=== PATIENT | male | born 1975 | race Caucasian/White ===

== ENCOUNTER 2017-01-06 19:36 | Inpatient (IN) | payer MEDICARE, MEDICAID ==
[2017-01-06] MEDS ORDERED: Sodium Chloride 0.9% 1,000 ML IV STA ×2 (21:02→23:58)
--- NOTE | 2017-01-06 21:11 | ED PDOC ---
HPI: Psych/Substance Abuse Time Seen by Provider: 01/06/17 20:26 Chief Complaint (Nursing): Psychiatric Evaluation Chief Complaint (Provider): crisis eval History Per: Patient History/Exam Limitations: no limitations Onset/Duration Of Symptoms: Days Current Symptoms Are (Timing): Still Present Additional History Per: Patient Additional Complaint(s): 41 y/o male history of diabetes, bipolar presents for crisis eval. Patient states he had a "bad day" and had thoughts of hurting himself by injecting himself with a bottle of insulin. Patient notes he has been out of his bipolar meds x a few days, and is noncompliant with his insulin. Denies homicidal ideations,hallucinations, drug/alcohol use, acute medical complaints. Past Medical History Reviewed: Historical Data, Nursing Documentation, Vital Signs Vital Signs: Last Vital Signs Temp 98.2 F 01/06/17 20:00 Pulse 94 H 01/06/17 20:00 Resp 16 01/06/17 20:00 BP 135/69 01/06/17 20:00 Pulse Ox 100 01/06/17 20:00 - Medical History PMH: Bipolar Disorder, Diabetes, Schizophrenia Denies: Chronic Kidney Disease - Surgical History Surgical History: No Surg Hx - Family History Family History: States: Unknown Family Hx - Living Arrangements Living Arrangements: Alone - Social History Current smoker - smoking cessation education provided: Yes Alcohol: None Drugs: Denies - Home Medications Home Medications: Ambulatory Orders Medication Instructions Recorded Gabapentin [Neurontin] 300 mg PO DAILY 01/07/17 QUEtiapine [Seroquel] 100 mg PO Q12 01/07/17 - Allergies Allergies/Adverse Reactions: Allergies Allergy/AdvReac Type Severity Reaction Status Date / Time No Known Allergies Allergy Verified 01/06/17 20:00 Review of Systems ROS Statement: Except As Marked, All Systems Reviewed And Found Negative Psych: Positive for: Depression, Suicidal ideation Physical Exam - Reviewed Nursing Documentation Reviewed: Yes Vital Signs Reviewed: Yes - Physical Exam Appears: Positive for: Well, Non-toxic, No Acute Distress Head Exam: Positive for: ATRAUMATIC, NORMAL INSPECTION, NORMOCEPHALIC Skin: Positive for: Normal Color Eye Exam: Positive for: Normal appearance ENT: Positive for: Normal ENT Inspection Cardiovascular/Chest: Positive for: Regular Rate, Rhythm Respiratory: Positive for: Normal Breath Sounds Gastrointestinal/Abdominal: Positive for: Normal Exam Back: Positive for: Normal Inspection Extremity: Positive for: Normal ROM Neurologic/Psych: Positive for: Alert, Oriented - Laboratory Results Result Diagrams: 01/06/17 21:15 01/06/17 21:15 - ECG ECG: Positive for: Viewed By Me (reviewed by ED attending) ECG Rhythm: Positive for: Sinus Rhythm O2 Sat by Pulse Oximetry: 100 Pulse Ox Interpretation: Normal - Radiology X-Ray: Viewed By Me X-Ray Interpretation: No Acute Disease - Progress ED Course And Treament: accucheck, labs, urine, crisis eval Patient evaluated by workers' compensation claims supervisor; to be admitted pending clearance. EKG, chest xray ordered Patient given IV fluids, insulin in ED for elevated BS; repeated accu improved ( 262) Medical Decision Making Medical Decision Making: Patient medically stable for psych admission. Disposition - Clinical Impression Clinical Impression: Schizoaffective disorder, Bipolar 1 disorder - Patient ED Disposition Is Patient to be Admitted: Yes - Disposition Disposition Time: 01:58 Condition: STABLE
[2017-01-06 21:31] LABS: BASO # 0.1 K/uL (0.0-0.2); BASO % 1.1 % (0.0-2.0); EOS # 0.1 K/uL (0.0-0.7); EOS % 2.5 % (0.0-4.0); HEMATOCRIT 42.4 % (35.0-51.0); LYMPH # 2.1 K/uL (1.0-4.3); LYMPH % 39.6 % (20.0-40.0); MEAN CELL VOLUME 80.6 fl (80.0-94.0); MEAN CORPUSCULAR HEMOGLOBIN 26.5 pg (27.0-31.0); MEAN CORPUSCULAR HGB CONC 32.9 g/dL (33.0-37.0); MONO # 0.4 K/uL (0.0-0.8); MONO % 7.6 % (0.0-10.0); NEUT # 2.6 K/uL (1.8-7.0); NEUT % 49.2 % (50.0-75.0); RED CELL DISTRIBUTION WIDTH 14.5 % (11.5-14.5); WHITE BLOOD COUNT 5.3 K/uL (4.8-10.8)
[2017-01-06 21:34] LABS: RBC URINE < 1 /hpf (0-3); URINE BILIRUBIN NEGATIVE (NEGATIVE); URINE BLOOD NEGATIVE (NEGATIVE); URINE COLOR YELLOW (YELLOW); URINE GLUCOSE (UA) >=500 mg/dL (Normal); URINE KETONE TRACE mg/dL (NEGATIVE); URINE LEUKOCYTE ESTERASE NEG Leu/uL (Negative); URINE PROTEIN NEGATIVE (NEGATIVE); URINE UROBILINOGEN 0.2-1.0 mg/dL (0.2-1.0)
[2017-01-06 21:51] LABS: ALB/GLOB RATIO 1.2 (1.0-2.1); ALCOHOL SERUM < 10 mg/dl (0-10); ALKALINE PHOSPHATASE 87 U/L (38-126); ALT/SGPT 19 U/L (21-72); AST/SGOT 29 U/L (17-59); BILIRUBIN,TOTAL 0.7 mg/dl (0.2-1.3); BLOOD UREA NITROGEN 18 mg/dl (9-20); CALCIUM 9.2 mg/dL (8.4-10.2); CARBON DIOXIDE 27 mmol/L (22-30); CHLORIDE 97 mmol/L (98-107); GFR AFRICAN-AMERICAN > 60; POTASSIUM 4.8 MMOL/L (3.6-5.0); SODIUM 138 mmol/l (132-148); TOTAL PROTEIN 7.2 G/DL (6.3-8.2)
[2017-01-06 21:58] LABS: GLUCOSE,RANDOM 432 mg/dL (75-110)
[2017-01-06] MEDS ORDERED: Insulin Regular 100 units/ml IV STA ×3 (22:01→23:57)
[2017-01-06 22:12] LABS: ABG ALLEN TEST YES; ARTERIAL BLOOD GAS HCO3 27.4 mmol/L (21-28); ARTERIAL BLOOD GAS O2 CAPACITY 18.1 mL/dL (16-24); ARTERIAL BLOOD GAS O2 CONTENT 17.8 ML/dL (15-23); ARTERIAL BLOOD GAS PH 7.42 (7.35-7.45); ARTERIAL BLOOD GAS PO2 72 mm/Hg (80-100); ARTERIAL BLOOD HGB O2 SAT 90.9 % (95.0-98.0); CARBOXYHEMOGLOBIN 5.4 % (0.5-1.5); HHB 1.6 % (0.0-5.0); METHEMOGLOBIN 2.1 % (0.0-3.0)
[2017-01-06] MEDS ORDERED: Insulin Regular 100 units/ml ONE ×2 (22:27→23:54)
[2017-01-07 02:15] VITALS: O2SAT 100
[2017-01-07] MEDS ORDERED: Alum-Mag Hydrox-Simethicone Susp (30 mL) PO PRN (03:09)
[2017-01-07] MEDS ORDERED: Magnesium Hydroxide Susp 30 ml UD PO PRN (03:09)
[2017-01-07] MEDS ORDERED: Bismuth Subsalicylate 262 mg/15 ml Sus (240 ml) PO PRN (03:09)
[2017-01-07] MEDS ORDERED: DiphenhydrAMINE 50 mg/ml Inj IM PRN (03:14)
[2017-01-07 07:35] LABS: IRON 66 ug/dL (49-181)
[2017-01-07 07:47] LABS: T4 6.8 ug/dl (5.5-11.0)
[2017-01-07 08:00] LABS: THYROID STIMULATING HORMONE 2.77 mIU/ML (0.46-4.68)
[2017-01-07] MEDS: Insulin Lispro (humaLOG) 100 Units/ml Inj SC SCH ×4 (08:54→21:13)
--- NOTE | 2017-01-07 10:29 | RAD ---
HISTORY: clearance COMPARISON: None available. TECHNIQUE: Chest, one view. FINDINGS: Examination limited by habitus. LUNGS: Mild right basilar atelectasis. Please note that chest x-ray has limited sensitivity for the detection of pulmonary masses. PLEURA: No significant pleural effusion identified. No definite pneumothorax . CARDIOVASCULAR: Borderline cardiomegaly. OSSEOUS STRUCTURES: No acute osseous abnormality identified. VISUALIZED UPPER ABDOMEN: Unremarkable. OTHER FINDINGS: None. IMPRESSION: Borderline cardiomegaly. Mild right basilar atelectasis.
--- NOTE | 2017-01-07 11:29 | CARD ---
APPROVED REPORT EKG Measurement Heart [id number] <Conclusion> Normal sinus rhythm Inferior infarct, age undetermined Abnormal ECG
[2017-01-07] MEDS: Insulin Lispro Mix 75/25 100 units/ml (HumaLog) 10ml SC SCH ×2 (12:12→18:06)
--- NOTE | 2017-01-07 12:30 | PCM.PSYCH ---
Initial Psychiatric Evaluation - Initial Psychiatric Evaluation Type of Admission: Voluntary Legal Status: Capacity Chief Complaint (in patient's own words): "I would rather kill myself than start using drugs again." Patient's Reaction to Hospitalization: 41 y/o male w/ self reported h/o bipolar vs schizoaffective disorder, that comes to [facility] for suicidal ideations with a plan to overdose on his insulin medications. Pt reports to being depressed because he came to [place] for employment opportunities and have not been able to find a job. Pt also reports that the woman and friends that were going to be his support system left him without help or [facility]. Pt reports being originally from [place] and came to [place] 6 months ago. Pt reports that he is diagnosed with Bipolar vs. Schizoaffective Disorder and is being prescribed Remeron and Seroquel 150mg. Pt reports no current substance abuse but admitted to having a history of alcohol, cocaine and marijuana abuse. Pt reports to his last alcohol use being one month ago. Pt denies delusions and hallucinations of any kind and was not observed responding to internal stimuli. PPHx: Diagnosed with Bipolar and Schizoaffective Disorder (although unlikely, given that psychotic symptoms were in the context of cocaine abuse). Pt reports to history of inpatient treatment. Pt states being hospitalized at [facility] 2 months ago for suicidal and homicidal ideations. Pt denies current homicidal ideations. SHx: H/o alcohol/cocaine/marijuana abuse, denies current usage. Moved from [place]. Homeless. Unemployed, used to work in a warehouse. Pt states that two of his previous fianc were murdered (2004- one during a robbery and 2010- other involved in selling drugs). FHx: Father w/ h/o bipolar disorder, he of an accidental overdose of prescription opioids. Brother w/ h/o suicide attempts. MHx: Diabetes (not well controlled) ALL: NKDA Current Medications: Active Medications Generic Name Dose Route Start Last Admin Trade Name Freq PRN Reason Stop Dose Admin Acetaminophen 650 mg 01/07/17 03:09 Tylenol 325mg Tab PO Q4 PRN Pain, moderate (4-7) Al Hydrox/Mg Hydrox/Simethicone 30 ml 01/07/17 03:09 Maalox Plus 30 Ml PO Q4 PRN Dyspepsia Bismuth Subsalicylate 524 mg 04/19/17 03:09 Pepto-Bismol PO Q4 PRN Diarrhea Diphenhydramine HCl 50 mg 01/07/17 03:14 Benadryl PO Q6 PRN Extrapyramidal Symptoms Diphenhydramine HCl 50 mg 01/07/17 03:14 Benadryl IM Q6 PRN Extrapyramidal S/S Unable PO Diphenhydramine HCl 50 mg 01/07/17 03:52 Benadryl PO HS PRN Sleep Gabapentin 300 mg 01/07/17 09:00 01/07/17 12:09 Neurontin PO 300 mg TID DWIGHT Administration Haloperidol 5 mg 01/07/17 03:14 Haldol PO Q4 PRN Agitation Haloperidol Lactate 5 mg 01/07/17 03:14 Haldol IM Q4 PRN Agitation, Unable to Take PO Insulin Human Lispro 0 units 01/07/17 07:30 01/07/17 12:11 Humalog SC 4 u ACHS [facility] Administration Protocol Insulin Lispro Protam/Lispro Human 50 units 01/07/17 09:00 01/07/17 12:12 Humalog Mix 75/25 SC 50 units BID [facility] Administration Lorazepam 2 mg 01/07/17 03:14 Ativan PO Q4 PRN Anxiety/Agitation Lorazepam 2 mg 01/07/17 03:14 Ativan IM Q4 PRN Anxiety/Agitation,Unable PO Magnesium Hydroxide 30 ml 01/07/17 03:09 Milk Of Magnesia PO HS PRN Constipation Mirtazapine 15 mg 01/07/17 22:00 Remeron PO HS [facility] Quetiapine Fumarate 100 mg 01/07/17 22:00 Seroquel PO HS [facility] Past Psychiatric History - Past Psychiatric History Previous Treatment History: Inpatient Pertinent Medical Hx (Current Medical&Sleep Prob, Allergies): Allergies Allergy/AdvReac Type Severity Reaction Status Date / Time No Known Allergies Allergy Verified 01/06/17 20:00 Gabapentin [Neurontin] 300 mg PO TID 01/07/17 Insulin Human (NPH)/Regular [Novolin 70/30 (70/30 units/ml) 10 ml] 50 units SC BID 01/07/17 Mirtazapine [Remeron] 15 mg PO HS 01/07/17 QUEtiapine [Seroquel] 100 mg PO HS 01/07/17 Review of Systems - Review of Systems All systems: reviewed and no additional remarkable complaints except - Psychiatric Psychiatric: Abnormal Sleep Pattern, Depression, Irritability, Suicidal Ideation Mental Status Examination - Personal Presentation Personal Presentation: Looks stated age - Affect Affect: Constricted - Motor Activity Motor Activity: Calm - Reliability in Providing Information Reliability in Providing Information: Good - Speech Speech: Organized - Mood Mood: Depressed - Formal Thought Process Formal Thought Process: No Impairment - Obsessions/Compulsions Obsessions: No Compulsions: No - Cognitive Functions Orientation: Person, Place, Situation, Time Sensorium: Alert Attention/Concentration: Attentive Estimate of Intelligence: Average Judgement: Intact, as evidence by: Good judgement, Intact, as evidence by: Insight regarding need for hospitalization Memory: Recent intact, as evidence by: Ability to recall events of the day, Remote intact, as evidenced by: Abilit to recall sig. life events, Remote intact , as evidenced by: Ability to recall historical events - Risk Risk: Suicidal - Strength & Assets Inventory Strength & Assets Inventory: Cooperative - Limitations Limitations: Other (Homeless, poverty) DSM 5 DX - DSM 5 DSM 5 Diagnosis: Bipolar Disorder, History of Cocaine/Alcohol/Marijuana Abuse - Recommended/Plan of Treatment Treatment Recommendations and Plan of Treatment: 41 yo homeless male p/w suicidal ideation to harm himself, patient likely has Bipolar Disorder vs major depressive disorder, given that his reported symptoms of thelma are vague and may be related to his h/o cocaine abuse. -Admit to psychiatry -Stop Seroquel and Remeron as the patient has not been taking these medications -Start Depakote 500 mg PO BID -Start Trazodone 50 mg PO HS -No 1:1 needed as patient is able to contract for safety -Individual, group and milieu tx -Hospitalist consult for management of Diabetes Projected ELOS: 3-5 days Discharge Plan and Discharge Criteria: Discharge when psychiatrically stable - Smoking Cessation Smoking Cessation Initiated: No Reason for not providing: Not indicated
[2017-01-07] MEDS: Divalproex 500 mg DR(BID formulation) PO SCH ×2 (13:10→18:07)
[2017-01-07 14:12] LABS: FOLATE 16.9 ng/mL
--- NOTE | 2017-01-07 20:06 | CP.PCM.CON ---
History of Present Illness - History of Present Illness History of Present Illness: Attending: Dr Bello Reason for Consult: Management of Diabetes Mellitus Chief Complaint: Suicide Ideation HPI: 41 years old male with hx of HTN , Bipolar and Schizophrenia with multiple Inpatient Psychiatric treatment for Depression and suicidal ideations. He comes to the ED with suicidal and homicidal ideation, after running out of his medications and not able to find a job. PMH: DM II; Bipolar disorder; Schizophrenia PSH: No Surgical Hx SH: Hx of Substance abuse with Cocaine, Marijuana; Alcohol abuse; heavy smoker; Unemployed' Live alone FH: Unknown family hx Allergies: NKDA Review of Systems - Constitutional Constitutional: absent: Anorexia, Fever, Headache - EENT Eyes: Requires Corrective Lenses. absent: Diplopia, Floaters, Photophobia, Sees Flashes Ears: absent: Decreased Hearing, Ear Discharge, Ear Pain, Tinnitus Nose/Mouth/Throat: absent: Epistaxis, Nasal Discharge, Sinus Pain, Sinus Pressure, Sore Throat - Cardiovascular Cardiovascular: absent: Chest Pain, Dyspnea, Edema - Respiratory Respiratory: absent: Cough, Dyspnea, Wheezing - Gastrointestinal Gastrointestinal: absent: Abdominal Pain, Constipation, Diarrhea, Nausea, Vomiting - Genitourinary Genitourinary: absent: Dysuria, Flank Pain, Hematuria, Freq UTI - Musculoskeletal Additional comments: pain to both feet - Integumentary Integumentary: absent: Pruritus, Rash, Skin Ulcer, Sores, Striae, Swelling - Neurological Neurological: absent: Focal Weakness, Headaches, Memory Loss, Tremor, Vertigo - Psychiatric Psychiatric: Anxiety, Depression. absent: Panic Attacks - Endocrine Endocrine: absent: Palpitations, Polydipsia, Polyphagia, Polyuria - Hematologic/Lymphatic Hematologic: absent: Easy Bleeding, Easy Bruising Past Patient History - Past Medical History & Family History Past Medical History?: Yes - Past Social History Smoking Status: Heavy Smoker > 10 Cigarettes Daily Chewing Tobacco Use: No Cigar Use: No Alcohol: Social Drugs: Cocaine Home Situation {Lives}: Alone - CARDIAC Hx Cardiac Disorders: No - PULMONARY Hx Respiratory Disorders: No Hx Pneumonia: Yes - NEUROLOGICAL Hx Neurological Disorder: No - HEENT Hx HEENT Problems: No - RENAL Hx Chronic Kidney Disease: No - ENDOCRINE/METABOLIC Hx Endocrine Disorders: Yes (Diabetes) Hx Diabetes Mellitus Type 2: Yes - HEMATOLOGICAL/ONCOLOGICAL Hx Blood Disorders: No - INTEGUMENTARY Hx Dermatological Problems: No - MUSCULOSKELETAL/RHEUMATOLOGICAL Hx Musculoskeletal Disorders: No - GASTROINTESTINAL Hx Gastrointestinal Disorders: No - GENITOURINARY/GYNECOLOGICAL Hx Genitourinary Disorders: No - PSYCHIATRIC Hx Anxiety: Yes Hx Bipolar Disorder: Yes Hx Depression: Yes Hx Schizophrenia: Yes Hx Substance Use: Yes - SURGICAL HISTORY Hx Surgeries: No - ANESTHESIA Hx Anesthesia: No Hx Anesthesia Reactions: No Hx Malignant Hyperthermia: No Has any member of the family had a problem w/ anesthesia?: No Meds Allergies/Adverse Reactions: Allergies Allergy/AdvReac Type Severity Reaction Status Date / Time No Known Allergies Allergy Verified 01/06/17 20:00 - Medications Medications: Current Medications Acetaminophen (Tylenol 325mg Tab) 650 mg PO Q4 PRN PRN Reason: Pain, moderate (4-7) Al Hydrox/Mg Hydrox/Simethicone (Maalox Plus 30 Ml) 30 ml PO Q4 PRN PRN Reason: Dyspepsia Bismuth Subsalicylate (Pepto-Bismol) 524 mg PO Q4 PRN PRN Reason: Diarrhea Diphenhydramine HCl (Benadryl) 50 mg PO Q6 PRN PRN Reason: Extrapyramidal Symptoms Diphenhydramine HCl (Benadryl) 50 mg IM Q6 PRN PRN Reason: Extrapyramidal S/S Unable PO Diphenhydramine HCl (Benadryl) 50 mg PO HS PRN PRN Reason: Sleep Divalproex Sodium (Depakote Dr(*Bid*)) 500 mg PO BID [facility] Last Admin: 01/07/17 18:07 Dose: 500 mg Gabapentin (Neurontin) 300 mg PO TID [facility] Last Admin: 01/07/17 18:07 Dose: 300 mg Haloperidol (Haldol) 5 mg PO Q4 PRN PRN Reason: Agitation Haloperidol Lactate (Haldol) 5 mg IM Q4 PRN PRN Reason: Agitation, Unable to Take PO Insulin Human Lispro (Humalog) [address] [facility] PRN Reason: Protocol Last Admin: 01/07/17 18:04 Dose: 3 u Insulin Lispro Protam/Lispro Human (Humalog Mix 75/25) 50 units SC BID [facility] Last Admin: 01/07/17 18:06 Dose: 50 units Lorazepam (Ativan) 2 mg PO Q4 PRN PRN Reason: Anxiety/Agitation Lorazepam (Ativan) 2 mg IM Q4 PRN PRN Reason: Anxiety/Agitation,Unable PO Magnesium Hydroxide (Milk Of Magnesia) 30 ml PO HS PRN PRN Reason: Constipation Trazodone HCl (Desyrel) 50 mg PO HS [id number] Physical Exam - Head Exam Head Exam: ATRAUMATIC, NORMAL INSPECTION, NORMOCEPHALIC - Eye Exam Eye Exam: EOMI, Normal appearance Pupil Exam: NORMAL ACCOMODATION, PERRL - ENT Exam ENT Exam: Mucous Membranes Moist, Normal Exam, Normal External Ear Exam, Normal Oropharynx - Neck Exam Neck exam: Positive for: Full Rom, Normal Inspection. Negative for: Lymphadenopathy, Tenderness - Respiratory Exam Respiratory Exam: Clear to Auscultation Bilateral. absent: Rales, Rhonchi, Wheezes - Cardiovascular Exam Cardiovascular Exam: REGULAR RHYTHM, RRR, +S1, +S2. absent: Gallop - GI/Abdominal Exam GI & Abdominal Exam: Normal Bowel Sounds, Soft. absent: Organomegaly, Tenderness - Rectal Exam Rectal Exam: Deferred - Extremities Exam Extremities exam: Positive for: full ROM, normal inspection. Negative for: calf tenderness, joint swelling, pedal edema - Back Exam Back exam: NORMAL INSPECTION - Neurological Exam Neurological exam: Alert, CN II-XII Intact, Normal Gait, Oriented x3, Reflexes Normal - Psychiatric Exam Psychiatric exam: Normal Affect, Normal Mood - Skin Skin Exam: Dry, Intact, Normal Color, Warm Results - Vital Signs Recent Vital Signs: Last Vital Signs Temp 97.9 F 01/07/17 15:47 Pulse 77 01/07/17 15:47 Resp 20 01/07/17 15:47 BP 118/73 01/07/17 15:47 Pulse Ox 100 01/07/17 02:29 - Labs Result Diagrams: 01/06/17 21:15 01/06/17 21:15 Labs: Laboratory Results - last 24 hr 01/07/17 01/07/17 01/07/17 05:42 06:40 10:54 POC Glucose (mg/dL) 102 309 H Hemoglobin A1c 9.9 H Iron 66 TIBC 248 L % Saturation 26 Ferritin 120.0 Triglycerides 111 Cholesterol 153 LDL Cholesterol Direct 93 HDL Cholesterol 34 Vitamin B12 997 H Folate 16.9 Free T4 0.84 Thyroxine (T4) 6.80 TSH 3rd Generation 2.77 RPR Nonreactive 01/07/17 01/07/17 15:18 19:55 POC Glucose (mg/dL) 257 H 111 H Hemoglobin A1c Iron TIBC % Saturation Ferritin Triglycerides Cholesterol LDL Cholesterol Direct HDL Cholesterol Vitamin B12 Folate Free T4 Thyroxine (T4) TSH 3rd Generation RPR - EKG Data EKG comments: NSR 72/min - Imaging and Cardiology Chest x-ray Status: Image reviewed by me, Report reviewed by me Additional comment: Mild Atelectasis at the right base. No active disease Assessment & Plan - Assessment and Plan (Free Text) Assessment: #. Suicidal Ideation #. Bipolar 1 disorder #.Schizophrenia #. DM II with hyperglycemia Plan: 41 years old male with hx of HTN , Bipolar and Schizophrenia with multiple Inpatient Psychiatric treatment for Depression and suicidal ideations. He comes to the ED with suicidal and homicidal ideation, after running out of his medications and not able to find a job. #. Suicidal Ideation #. Bipolar 1 disorder and Schizophrenia - psychiatric management #. DM II with hyperglycemia - HbA1c 9.9 - Diabetic Diet - Lispro Insulin sliding scale according to Accucheck ACHS - Humalog mix 75/25 50units Sub Q BID with meals #. Diabetic Neuropathy with foot pains - Gabapentin #. Code Status: Full - Date & Time Date: 01/07/17 Time: 20:06
[2017-01-08] MEDS: Divalproex 500 mg DR(BID formulation) PO SCH ×2 (08:51→16:24)
[2017-01-08] MEDS: Insulin Lispro (humaLOG) 100 Units/ml Inj SC SCH ×4 (08:54→21:30)
[2017-01-08] MEDS: Insulin Lispro Mix 75/25 100 units/ml (HumaLog) 10ml SC SCH ×2 (08:55→16:25)
--- NOTE | 2017-01-08 14:56 | PCM.PYCHPN ---
Psychiatric Progress Note - Psychiatric Progress Note Patient seen today, length of contact: Patient evaluated, case discussed with team, chart reviewed Patient Chief Complaint: "I'm okay" Problems Identified/Issues Discussed: Patient reports that his mood is improving. He denies adverse effects to medications. No suicidal ideation/plan/intent. No acute complaints. He is brighter, engages appropriately in groups and with peers. Medication Change: No Medical Record Reviewed: Yes Mental Status Examination - Cognitive Function Orientation: Person, Place, Situation, Time Memory: Intact Attention: WNL Concentration: WNL Association: WNL Fund of Knowledge: WNL - Mood Mood: Depressed - Affect Affect: Broad - Speech Speech: Appropriate - Formal Thought Process Formal Thought Process: No Impairment Psychotic Thoughts and Behaviors: NO AH/VH/paranoia - Suicidal Ideation Suicidal Ideation: No - Homicidal Ideation Homicidal Ideation: No Goal/Treatment Plan - Goal/Treatment Plan Need for Continued Stay: Remain at risks for inpatient hospitalization, Severe depression anxiety Progress Toward Problem(s) and Goals/Treatment Plan: 41 yo homeless male p/w suicidal ideation to harm himself, patient likely has Bipolar Disorder vs major depressive disorder, given that his reported symptoms of thelma may be related to his h/o cocaine abuse. Patient denies current ideation to harm himself or others. -Continue Depakote 500 mg PO BID -Continue Trazodone 50 mg PO HS -No 1:1 needed as patient is able to contract for safety -Individual, group and milieu tx -Hospitalist consult appreciated Estimated Date of D/C: 01/12/17
[2017-01-09] MEDS: Insulin Lispro (humaLOG) 100 Units/ml Inj SC SCH ×4 (08:37→21:35)
[2017-01-09] MEDS: Insulin Lispro Mix 75/25 100 units/ml (HumaLog) 10ml SC SCH ×2 (08:40→16:39)
[2017-01-09] MEDS: Divalproex 500 mg DR(BID formulation) PO SCH ×2 (08:44→16:31)
--- NOTE | 2017-01-09 18:11 | PCM.PYCHPN ---
Psychiatric Progress Note - Psychiatric Progress Note Patient seen today, length of contact: Patient evaluated, case discussed with team, chart reviewed Patient Chief Complaint: "I'm okay" Problems Identified/Issues Discussed: Patient reports that his mood is improving. He continues to report difficulty sleeping at night. He denies adverse effects to medications. No suicidal ideation/plan/intent. No acute complaints. He is brighter, engages appropriately in groups and with peers. Medication Change: Yes (Increase Trazodone to 100 mg PO HS) Medical Record Reviewed: Yes Mental Status Examination - Cognitive Function Orientation: Person, Place, Situation, Time Memory: Intact Attention: WNL Concentration: WNL Association: WN Fund of Knowledge: [facility] Decription of patient's judgement and insights: Good I/J - Mood Mood: Depressed - Affect Affect: Broad - Speech Speech: Appropriate - Formal Thought Process Formal Thought Process: No Impairment Psychotic Thoughts and Behaviors: NO AH/VH/paranoia - Suicidal Ideation Suicidal Ideation: No - Homicidal Ideation Homicidal Ideation: No Goal/Treatment Plan - Goal/Treatment Plan Need for Continued Stay: Severe depression anxiety Progress Toward Problem(s) and Goals/Treatment Plan: 41 yo homeless male p/w suicidal ideation to harm himself, patient likely has Bipolar Disorder vs major depressive disorder, given that his reported symptoms of thelma may be related to his h/o cocaine abuse. Patient is improving clinically. -Continue Depakote 500 mg PO BID -Increase Trazodone to 100 mg PO HS -No 1:1 needed as patient is able to contract for safety -Individual, group and milieu tx -Hospitalist consult appreciated Estimated Date of D/C: 01/12/17
[2017-01-10] MEDS: Insulin Lispro (humaLOG) 100 Units/ml Inj SC SCH ×4 (09:03→22:00)
[2017-01-10] MEDS: Divalproex 500 mg DR(BID formulation) PO SCH ×2 (09:21→17:09)
[2017-01-10] MEDS: Insulin Lispro Mix 75/25 100 units/ml (HumaLog) 10ml SC SCH ×2 (09:22→17:09)
--- NOTE | 2017-01-10 11:17 | PCM.PYCHPN ---
Psychiatric Progress Note - Psychiatric Progress Note Patient seen today, length of contact: discussed with team Patient Chief Complaint: i'm not sleeping well Problems Identified/Issues Discussed: pt has no c/o medication side effects. pt reports he is not sleeping well. he asks for more trazodone. he c/o the food portion size. pt in good behavioral control. Medication Change: Yes (Increase Trazodone to 150 mg PO HS) Medical Record Reviewed: Yes Mental Status Examination - Cognitive Function Orientation: Person, Place, Situation, Time Memory: Intact Attention: WNL Concentration: WNL Association: WNL Fund of Knowledge: [facility] Decription of patient's judgement and insights: fair - Mood Mood: Depressed - Affect Affect: Broad - Speech Speech: Appropriate - Formal Thought Process Formal Thought Process: No Impairment Psychotic Thoughts and Behaviors: denies a/v hallucinations - Suicidal Ideation Suicidal Ideation: No - Homicidal Ideation Homicidal Ideation: No Goal/Treatment Plan - Goal/Treatment Plan Need for Continued Stay: Severe depression anxiety Progress Toward Problem(s) and Goals/Treatment Plan: bipolar disorder continue current treatment per primary team Estimated Date of D/C: 01/12/17
[2017-01-11] MEDS: Insulin Lispro (humaLOG) 100 Units/ml Inj SC SCH ×4 (06:34→21:36)
[2017-01-11] MEDS: Insulin Lispro Mix 75/25 100 units/ml (HumaLog) 10ml SC SCH ×2 (08:11→16:55)
[2017-01-11] MEDS: Divalproex 500 mg DR(BID formulation) PO SCH ×2 (08:12→16:56)
--- NOTE | 2017-01-11 12:24 | PCM.PYCHPN ---
Psychiatric Progress Note - Psychiatric Progress Note Patient seen today, length of contact: discussed with team Patient Chief Complaint: i guess i'm sleeping now Problems Identified/Issues Discussed: pt has no c/o medication side effects. pt reports improved sleep. pt in good behavioral control. Medication Change: Yes (change neurontin to 300mg bidhs) Medical Record Reviewed: Yes Mental Status Examination - Cognitive Function Orientation: Person, Place, Situation, Time Memory: Intact Attention: WNL Concentration: WNL Association: WNL Fund of Knowledge: WN Decription of patient's judgement and insights: fair - Mood Mood: Depressed - Affect Affect: Broad - Speech Speech: Appropriate - Formal Thought Process Formal Thought Process: No Impairment Psychotic Thoughts and Behaviors: denies a/v hallucinations - Suicidal Ideation Suicidal Ideation: No - Homicidal Ideation Homicidal Ideation: No Goal/Treatment Plan - Goal/Treatment Plan Need for Continued Stay: Severe depression anxiety Progress Toward Problem(s) and Goals/Treatment Plan: bipolar disorder continue current treatment per primary team Estimated Date of D/C: 01/12/17
[2017-01-12 06:01] VITALS: BP 117/64; PULSE 65; RESP 19; TEMP 96.9
[2017-01-12] MEDS: Insulin Lispro (humaLOG) 100 Units/ml Inj SC SCH ×2 (06:34→12:29)
--- NOTE | 2017-01-12 08:48 | PCM.PYCHDC ---
Mental Status Examination - Mental Status Examination Orientation: Person, Place, Situation, Time Memory: Intact Mood: Neutral Affect: Broad Speech: Appropriate Attention: WNL Concentration: WNL Association: WNL Fund of Knowledge: WNL Formal Thought Process: No Impairment Description of patient's judgement and insight: Good I/J Psychotic Thoughts and Behaviors: NO AH/VH/paranoia Suicidal Ideation: No Current Homicidal Ideation?: No Discharge Summary - Discharge Note Reason for Hospitalization: 41 y/o male w/ self reported h/o bipolar vs schizoaffective disorder, that comes to [facility] for suicidal ideations with a plan to overdose on his insulin medications. Pt reports to being depressed because he came to [place] for employment opportunities and have not been able to find a job. Pt also reports that the woman and friends that were going to be his support system left him without help or long-term. Pt reports being originally from [place] and came to [place] 6 months ago. Pt reports that he is diagnosed with Bipolar vs. Schizoaffective Disorder and is being prescribed Remeron and Seroquel 150mg. Pt reports no current substance abuse but admitted to having a history of alcohol, cocaine and marijuana abuse. Pt reports to his last alcohol use being one month ago. Pt denies delusions and hallucinations of any kind and was not observed responding to internal stimuli. PPHx: Diagnosed with Bipolar and Schizoaffective Disorder (although unlikely, given that psychotic symptoms were in the context of cocaine abuse). Pt reports to history of inpatient treatment. Pt states being hospitalized at [facility] 2 months ago for suicidal and homicidal ideations. Pt denies current homicidal ideations. SHx: H/o alcohol/cocaine/marijuana abuse, denies current usage. Moved from [place]. Homeless. Unemployed, used to work in a warehouse. Pt states that two of his previous fianc were murdered (2004- one during a robbery and 2010- other involved in selling drugs). FHx: Father w/ h/o bipolar disorder, he of an accidental overdose of prescription opioids. Brother w/ h/o suicide attempts. MHx: Diabetes (not well controlled) ALL: NKDA Laboratory Data: Abnormal Lab Results 01/11/17 01/11/17 01/11/17 11:15 16:20 20:22 POC Glucose (mg/dL) 261 H 256 H 215 H Valproic Acid 01/12/17 01/12/17 05:51 07:03 POC Glucose (mg/dL) 122 H Valproic Acid 57.9 Consultations:: List each consultation separately and include: 1. Reason for request. 2. Findings. 3. Follow-up Consultations: Medicine consult Summary of Hospital Course include:: 1. Description of specific treatment plan utilized for patients during their course of treatmen. 2. Summarize the time- course for resolution of acute symptoms and/or regressed behaviors. 3. Describe issues identified and worked on during hospitalization. 4. Describe medication utilized. 5. Describe medical problems identified and treated. 6. Reassessment of suicide risk Summary of Hospital Course: Patient admitted to the hospital. He was stabilized on Depakote 500 mg PO BID ( VPA level 58) and Trazodone 150 mg PO HS. He reports improvement in mood. No psychotic symptoms. No self-injurious ideation. He participated in individual and group therapy. He is psychiatrically stable for discharge. - Final Diagnosis (DSM 5) Condition upon Discharge: GOOD DSM 5: Bipolar Disorder Disposition: HOME/ ROUTINE Follow-up Treatment Plan: 41 yo homeless male p/w suicidal ideation to harm himself, patient likely has Bipolar Disorder vs major depressive disorder, given that his reported symptoms of thelma may be related to his h/o cocaine abuse. Patient is psychiatrically stable for discharge. -Continue Depakote 500 mg PO BID -Continue Trazodone 150 mg PO HS -Discharge with outpatient follow-up Discharge >35 minutes Prescriptions/Medication Reconciliation: Divalproex [Depakote DR(*BID*)] 500 mg PO BID #60 tcp traZODone [Desyrel] 150 mg PO HS #90 tab Gabapentin [Neurontin] 300 mg PO TID #90 cap - Smoking Cessation Smoking Cessation Medication prescribed: No Reason for not providing: Not indicated - Antipsychotic Medications Pt discharged on 2 or more routine antipsychotic medications: No
[2017-01-12] MEDS: Insulin Lispro Mix 75/25 100 units/ml (HumaLog) 10ml SC SCH (08:52)
[2017-01-12] MEDS: Divalproex 500 mg DR(BID formulation) PO SCH (08:53)
== END 2017-01-12 15:45 | disposition home or self-care (01) | DRG 885 ==
LOC: H.ER 19:36 → H.ERHOLD 01-07 01:55 → H.STEP 01-07 02:33
PROVIDERS: ADMIT Psychiatry & Neurology Psychiatry; ATTEND Psychiatry & Neurology Psychiatry
DX: F31.9 Bipolar disorder, unspecified (principal); E11.40 Type 2 diabetes mellitus with diabetic neuropathy, unspecified; R45.851 Suicidal ideations; E11.65 Type 2 diabetes mellitus with hyperglycemia; I10 Essential (primary) hypertension; F25.9 Schizoaffective disorder, unspecified; Z59.0 Homelessness; Z79.899 Other long term (current) drug therapy; Z87.01 Personal history of pneumonia (recurrent); Z91.14 Patient's other noncompliance with medication regimen; Z81.8 Family history of other mental and behavioral disorders; Z87.898 Personal history of other specified conditions; Z56.0 Unemployment, unspecified; F17.210 Nicotine dependence, cigarettes, uncomplicated; F41.9 Anxiety disorder, unspecified; F32.9 Major depressive disorder, single episode, unspecified; F14.10 Cocaine abuse, uncomplicated